=== PATIENT | male | born 1940 | race Caucasian/White ===

== ENCOUNTER 2016-06-14 11:37 | Inpatient (IN) | payer MEDICARE, OTHER ==
[2016-06-14] MEDS ORDERED: AMBIEN5 M1 PO (12:48)
[2016-06-14] MEDS ORDERED: ASPIRIN81 M1 PO (12:48)
[2016-06-14] MEDS ORDERED: TYLENOL325 M2 PO (12:48)
[2016-06-14] MEDS ORDERED: CYMBALTA60 M1 PO (12:49)
[2016-06-14] MEDS ORDERED: VALIUM10 M1 PO (12:49)
[2016-06-14] MEDS ORDERED: DULCOLAX STOOL100 M1 PO (12:50)
[2016-06-14] MEDS ORDERED: FLUDROCORTISON0.1 M1 PO (12:52)
[2016-06-14] MEDS ORDERED: MELATONIN10 M6 PO (12:53)
[2016-06-14] MEDS ORDERED: NEURONTIN300 M1 PO (12:53)
[2016-06-14] MEDS ORDERED: MIRALAX17 G2 PO (12:54)
[2016-06-14] MEDS ORDERED: MIDODRINE HCL5 M1 PO (12:54)
[2016-06-14] MEDS ORDERED: SODIUM PHOSPHATE PR (12:55)
[2016-06-14] MEDS ORDERED: FLOMAX0.4 M1 PO (12:56)
[2016-06-14] MEDS ORDERED: ULTRAM50 M1 PO (12:57)
[2016-06-14 15:07] LABS: BASO % 0.5 % (0-2); EOSINOPHIL ABSOLUTE COUNT 0.1 tho/cmm (0.0-0.7); HCT-HEMATOCRIT 36.9 % (36.0-53.5); HGB-HEMOGLOBIN 12.1 gm/dl (13.5-17.0); LYMPH % 26.2 % (20-45); LYMPH ABSOLUTE COUNT 1.5 tho/cmm (0.8-4.5); MCH (MEAN CORPUSCULAR HGB) 29.5 pg (28.0-32.0); MCHC MEAN CORPUSCULAR HGB CONC 32.8 % (32.0-36.0); MEAN PLATELET VOLUME 11.3 cmc (9.4-12.4); MONO % 10.7 % (0-12); MONOCYTE ABSOLUTE COUNT 0.6 tho/cmm (0.0-1.2); NEUTROPHIL ABSOLUTE COUNT 3.6 tho/cmm (1.6-8.0); NEUTROPHIL-AUTOMATED 3.6 tho/cmm (1.6-8.0); NEUTROPHILS % 60.6 % (40-80); PLATELET COUNT 139 tho/cmm (150-450); RED CELL DISTRIBUTION WIDTH 13.5 % (12.4-16.4); WHITE BLOOD COUNT 5.9 tho/cmm (4.0-10.0)
[2016-06-14 15:23] LABS: ALBUMIN 3.2 g/dl (3.5-5.0); ALKALINE PHOSPHATASE 90 U/L (33-138); ALT/SGPT 23 U/L (12-78); ANION GAP 12 mmol/L (0-20); AST/SGOT 13 U/L (10-40); BILIRUBIN,TOTAL 0.4 mg/dl (0.0-1.5); BLOOD UREA NITROGEN 34 mg/dl (6-24); CALCIUM 9.5 mg/dl (8.5-10.5); CARBON DIOXIDE-VENOUS 33 mmol/L (22-32); CHLORIDE 101 mmol/l (96-110); CHOLESTEROL 128 mg/dl (120-200); CREATININE 1.58 mg/dl (0.60-1.30); GLUCOSE 126 mg/dL (70-110); HDL CHOLESTEROL 38 mg/dl (40-60); LDL CHOLESTEROL 73 mg/dl (0-99); MAGNESIUM 2.1 mg/dl (1.8-2.6); POTASSIUM 4.3 mmol/L (3.7-5.1); SODIUM 142 mmol/L (135-145); TRIGLYCERIDES 89 mg/dl (<149); VLDL 18 mg/dl (0-30); eGFR VALUE FOR BLACK 49 mL/Min
[2016-06-14 15:25] LABS: CKMB 0.9 ng/ml (<3.6)
[2016-06-14 18:37] LABS: URINE APPEARANCE HAZY; URINE BILIRUBIN NEGATIVE (NEG); URINE BLOOD NEGATIVE (NEG); URINE COLOR YELLOW; URINE GLUCOSE (UA) NEGATIVE (NEG); URINE KETONE NEGATIVE (NEG); URINE LEUKOCYTE ESTERASE NEGATIVE (NEG); URINE NITRITE NEGATIVE (NEG); URINE PH 6.5 (5.0-8.0); URINE PROTEIN NEGATIVE (NEG); URINE SPECIFIC GRAVITY 1.015 (1.003-1.030)
[2016-06-14 20:54] LABS: CKMB 2.2 ng/ml (<3.6)
[2016-06-15 04:43] LABS: CKMB 1.9 ng/ml (<3.6)
[2016-06-15 13:36] LABS: ANION GAP 9 mmol/L (0-20); BLOOD UREA NITROGEN 24 mg/dl (6-24); CALCIUM 9.3 mg/dl (8.5-10.5); CARBON DIOXIDE-VENOUS 31 mmol/L (22-32); CHLORIDE 106 mmol/l (96-110); CREATININE 1.11 mg/dl (0.60-1.30); GLUCOSE 138 mg/dL (70-110); POTASSIUM 3.8 mmol/L (3.7-5.1); SODIUM 142 mmol/L (135-145); eGFR VALUE FOR BLACK 74 mL/Min
--- NOTE | 2016-06-19 08:30 | NUR ---
PT UP TO BATHROOM WITHOUT ANY DIZZINESS. AT SINK WASHING HIS HANDS AND FELT VERY DIZZY LIKE HE WAS "GOING TO PASS OUT". GOT INTO CHAIR AND BACK TO BED. SEE ORTHOSTATIC BPS IN PROGRESS NOTES.
[2016-06-21 05:51] LABS: ANION GAP 10 mmol/L (0-20); BLOOD UREA NITROGEN 22 mg/dl (6-24); CALCIUM 9.1 mg/dl (8.5-10.5); CARBON DIOXIDE-VENOUS 33 mmol/L (22-32); CHLORIDE 106 mmol/l (96-110); CREATININE 0.89 mg/dl (0.60-1.30); GLUCOSE 93 mg/dL (70-110); POTASSIUM 3.6 mmol/L (3.7-5.1); SODIUM 145 mmol/L (135-145); eGFR VALUE FOR BLACK >90 mL/Min
[2016-06-28 10:28] LABS: TSH-THYROID STIMULATING HORM. 1.79 uIU/ml (0.40-3.80)
[2016-06-30] MEDS ORDERED: NORTHERA100 MG PO (10:40)
[2016-06-30] MEDS ORDERED: ISOPTO TEARS15 M1 OP (10:43)
[2016-06-30] MEDS ORDERED: MELATONIN3 M4 PO (10:47)
[2016-06-30] MEDS ORDERED: POTASSIUM CHLO20 ME3 PO (10:48)
[2016-06-30 11:37] LABS: ANION GAP 12 mmol/L (0-20); BLOOD UREA NITROGEN 21 mg/dl (6-24); CALCIUM 9.2 mg/dl (8.5-10.5); CARBON DIOXIDE-VENOUS 36 mmol/L (22-32); CHLORIDE 99 mmol/l (96-110); CREATININE 0.97 mg/dl (0.60-1.30); GLUCOSE 106 mg/dL (70-110); SODIUM 143 mmol/L (135-145); eGFR VALUE FOR BLACK 88 mL/Min
[2016-07-03 06:05] LABS: BASO % 0.3 % (0-2); EOSINOPHIL ABSOLUTE COUNT 0.2 tho/cmm (0.0-0.7); HCT-HEMATOCRIT 39.9 % (36.0-53.5); HGB-HEMOGLOBIN 12.9 gm/dl (13.5-17.0); IMMATURE GRANULOCYTES ABSOLUTE 0.01 tho/cmm (0-0.03); IMMATURE GRANULOCYTES PERCENT 0.2 % (0-0.3); LYMPH % 20.2 % (20-45); LYMPH ABSOLUTE COUNT 1.3 tho/cmm (0.8-4.5); MCH (MEAN CORPUSCULAR HGB) 29.3 pg (28.0-32.0); MCHC MEAN CORPUSCULAR HGB CONC 32.3 % (32.0-36.0); MCV (MEAN CELL VOLUME) 90.5 fl (82.0-96.0); MEAN PLATELET VOLUME 11.4 cmc (9.4-12.4); MONO % 10.7 % (0-12); MONOCYTE ABSOLUTE COUNT 0.7 tho/cmm (0.0-1.2); NEUTROPHIL ABSOLUTE COUNT 4.4 tho/cmm (1.6-8.0); NEUTROPHIL-AUTOMATED 4.4 tho/cmm (1.6-8.0); NEUTROPHILS % 65.6 % (40-80); PLATELET COUNT 163 tho/cmm (150-450); RED BLOOD COUNT 4.41 mil/cmm (4.40-5.70); RED CELL DISTRIBUTION WIDTH 13.6 % (12.4-16.4); WHITE BLOOD COUNT 6.7 tho/cmm (4.0-10.0)
[2016-07-03 06:21] LABS: ALB/GLOB RATIO 0.8 (0.8-2.0); ALKALINE PHOSPHATASE 93 U/L (33-138); ALT/SGPT 20 U/L (12-78); ANION GAP 10 mmol/L (0-20); AST/SGOT 14 U/L (10-40); BILIRUBIN,TOTAL 0.4 mg/dl (0.0-1.5); BLOOD UREA NITROGEN 22 mg/dl (6-24); CALCIUM 9.4 mg/dl (8.5-10.5); CARBON DIOXIDE-VENOUS 35 mmol/L (22-32); CHLORIDE 102 mmol/l (96-110); CREATININE 1.14 mg/dl (0.60-1.30); GLUCOSE 115 mg/dL (70-110); POTASSIUM 3.6 mmol/L (3.7-5.1); SODIUM 143 mmol/L (135-145); eGFR VALUE FOR BLACK 72 mL/Min
[2016-07-04] MEDS ORDERED: NITROSTAT0.4 M1 PO (11:43)
[2016-07-04] MEDS ORDERED: MOTRIN IB200 M1 PO (11:46)
[2016-07-04] MEDS ORDERED: PROTONIX40 M2 PO (11:48)
== END 2016-07-04 13:05 | DRG 312 ==
LOC: PCUB 11:37
PROVIDERS: Internal Medicine Cardiovascular Disease; Nurse Practitioner Acute Care; Psychiatry & Neurology Neurology; ADMIT Internal Medicine Interventional Cardiology
DX: I95.1 Orthostatic hypotension (principal); N17.9 Acute kidney failure, unspecified; I50.1 Left ventricular failure, unspecified; E44.1 Mild protein-calorie malnutrition; I48.0 Paroxysmal atrial fibrillation; Z68.28 Body mass index [BMI] 28.0-28.9, adult; Z91.81 History of falling; Z86.73 Personal history of transient ischemic attack (TIA), and cerebral infarction without residual deficits; R19.7 Diarrhea, unspecified; Z75.1 Person awaiting admission to adequate facility elsewhere
CPT/HCPCS: A9577; J0834; J7030